=== PATIENT | female | born 1945 | race Caucasian/White ===

== ENCOUNTER → 2024-12-26 10:55 | Outpatient (REF) | payer MEDICARE, OTHER, SELFPAY | LOC: EMG 10:55 | PROVIDERS: ATTENDING PHYSICIAN Pain Medicine Interventional Pain Medicine; FAMILY PHYSICIAN Internal Medicine | DX: M47.816 Spondylosis without myelopathy or radiculopathy, lumbar region (principal); R20.0 Anesthesia of skin | CPT/HCPCS: 95886; 95910 ==